=== PATIENT | male | born 1975 | race American Indian/Alaskan Native ===

== ENCOUNTER 2018-03-20 08:09 | Inpatient (IN) | payer OTHER ==
--- NOTE | 2018-03-20 08:38 | C.PDOC ---
History Of Present Illness Patient is a 42 y/o male who presents to the ED with a complaint of persistent midsternal chest pain for the last 1 week. Reports chest pain is localized, constant, and is not associated with activity, movement, position, or eating. Denies any SOB, fever, nausea/vomiting, or URI symptoms. Patient also complains of new onset of right leg "off balance" for the last 2 days. Patient admits symptoms worse with initial steps of walking but improves "once I'm walking for awhile". Denies any associated upper extremity symptoms. Patient admits to being compliant with medications and Hx of DM and HIV (undetectable viral load) . No other physical complaints at this time. PERSIST MIDSTERNAL CP X 1 WEEK, NEW ONSET "OFF BALANCE" X 2 DAYS. CP LOCALIZED CONSTANT, NO ASSOC W ACTIVITY, MOVEMENT, POSITION OR EATING. NO ASSOC SOB, NV FEVER URI SX. HO DM, HIV (VL UNDETECT), COMPLIANT W MEDS. CO R LEG "OFF BALANCE". DENIES VERTIGO, NEAR SYNCOPE, MIKE. SX WORSE WHEN INITIALLY BEGINS TO WALK, IMPROVES "ONCE IM WALKING FOR A WHILE". NO ASSOC UE SX EXAM NAD NONTOXIC HEENT NO NYSTAGMUS; B/L EARS NEG NARD NEURO NO MOTOR, SENS DEF. FINGER NOSE, HEEL GUSTAFSON WO DIFF GAIT MILD IMBALANCE TANDEM WALKING ON R LEG REMAINDER NEG Time Seen by Provider: 03/20/18 08:23 Chief Complaint (Nursing): Chest Pain History Per: Patient History/Exam Limitations: no limitations Onset/Duration Of Symptoms: Days (chest pain x1 week, new onset "off balance" x2 days) Current Symptoms Are (Timing): Still Present Recent travel outside of the [place]: No Past Medical History Reviewed: Historical Data, Nursing Documentation, Vital Signs Vital Signs: Last Vital Signs Temp 98.4 F 03/20/18 08:28 Pulse 79 03/20/18 08:38 Resp 16 03/20/18 08:38 BP 134/78 03/20/18 08:38 Pulse Ox 99 03/20/18 12:06 - Medical History PMH: Diabetes, HIV (undetectable viral load) Surgical History: No Surg Hx Family History: States: No Known Family Hx - Social History Hx Tobacco Use: Yes (heavy smoker) Hx Alcohol Use: Yes Hx Substance Use: No - Immunization History Hx Tetanus Toxoid Vaccination: No Hx Influenza Vaccination: No Hx Pneumococcal Vaccination: No Review Of Systems Constitutional: Negative for: Fever Cardiovascular: Positive for: Chest Pain Respiratory: Negative for: Cough, Shortness of Breath, Wheezing Gastrointestinal: Negative for: Nausea, Vomiting Neurological: Positive for: Incoordination (right leg "off balance" ) Physical Exam - Physical Exam Appears: Non-toxic, No Acute Distress Skin: Normal Color, Warm, Dry Head: Atraumatic, Normacephalic Eye(s): bilateral: Normal Inspection, Other (negative nystagmus) Ear(s): Bilateral: Normal Nose: Normal, No Flaring Oral Mucosa: Moist Chest: Symmetrical Cardiovascular: Rhythm Regular, No Murmur Respiratory: Normal Breath Sounds, No Rales, No Rhonchi, No Wheezing Gastrointestinal/Abdominal: Soft, No Tenderness Extremity: No Tenderness Neurological/Psych: Oriented x3, Normal Speech, Normal Cognition, Normal Motor, Normal Sensation, Other (finger-nose and heel-gustafson without difficulty) Gait: Unsteady (mildly imbalanced; tandem walking on right leg) ED Course And Treatment - Laboratory Results Result Diagrams: 03/20/18 08:44 03/20/18 08:44 ECG: Interpreted By Me ECG Rhythm: Sinus Rhythm ECG Interpretation: Normal Rate From EC O2 Sat by Pulse Oximetry: 99 Pulse Ox Interpretation: Normal - Radiology CXR: Interpreted by Me, Viewed By Ma CXR Interpretation: Yes: No Acute Disease - CT Scan/US CT head Other Rad Studies (CT/US): Interpreted By Me, Read By Radiologist CT/US Interpretation: PROCEDURE: CT HEAD WITHOUT CONTRAST. HISTORY: Right leg imbalance. COMPARISON: None available. TECHNIQUE: Axial computed tomography images were obtained through the head/brain without intravenous contrast. Radiation dose: Total exam DLP = 878.40 mGy-cm. This CT exam was performed using one or more of the following dose reduction techniques: Automated exposure control, adjustment of the mA and/or kV according to patient size, and/or use of iterative reconstruction technique. FINDINGS: HEMORRHAGE: No intracranial hemorrhage. BRAIN: There is a focal low-attenuation area in the left frontal periventricular white matter. There is no mass, mass effect or abnormal extra-axial fluid collection. VENTRICLES: The ventricles are normal in size, shape and configuration. CALVARIUM: The skull base and calvarium are normal. PARANASAL SINUSES: Predominantly clear. MASTOID AIR CELLS: Predominantly clear. OTHER FINDINGS: None. IMPRESSION: Focal left periventricular white matter abnormality is nonspecific, the differential considerations include age indeterminate infarction, demyelinating disease, and early chronic microangiopathic changes amongst others. An MRI of the brain without and with intravenous contrast is recommended for further evaluation. Progress Note: Head CT, EKG, CXR, blood work ordered. NIHSS Stroke Scale - Date/Time Evaluation Performed Date Performed: 03/20/18 Time Performed: 08:35 When Was NIHSS Performed: Baseline - How Severe is the Stroke Level of Consciousness: 0=Alert LOC to Questions: 0=Both comments correct LOC to commands: 0=Obeys both correctly Best Gaze: 0=Normal Visual: 0=No visual loss Facial: 0=Normal Motor Arm - Left: 0=No drift Motor Arm - Right: 0=No drift Motor Leg - Left: 0=No drift Motor Leg - Right: 0=No drift Limb Ataxia: 0=Absent Sensory: 0=Normal Best Language: 0=No aphasia Dysarthia: 0=Normal articulation Extinction & Inattention (Neglect): 0=Normal, no object Score: 0 Severity Of Stroke: 0 = No Stroke NIHSS Stroke Scale 2 - Date/Time Evaluation Performed Date Performed: 03/20/18 Time Performed: 12:00 When Was NIHSS Performed: Re-evaluation - How Severe is the Stroke Level of Consciousness: 0=Alert LOC to Questions: 0=Both comments correct LOC to commands: 0=Obeys both correctly Best Gaze: 0=Normal Visual: 0=No visual loss Facial: 0=Normal Motor Arm - Left: 0=No drift Motor Arm - Right: 0=No drift Motor Leg - Left: 0=No drift Motor Leg - Right: 0=No drift Limb Ataxia: 0=Absent Sensory: 0=Normal Best Language: 0=No aphasia Dysarthia: 0=Normal articulation Extinction & Inattention (Neglect): 0=Normal, no object Score: 0 Severity Of Stroke: 0 = No Stroke Progress - Re-Evaluation Re-evaluation Note: 03/20/18 09:51 APPEARS COMFORTABLE NAD VSS. NEURO UNCH. CT REPORT REVIEWED. WILL MRI D/W KUSH 03/20/18 11:58 D/W DR OWENS AWARE OF ER FINDINGS. RECOMMENDS CTA, ADMISSION. PLAVIX 300 MG, ASA 81 03/20/18 11:59 NEURO INTACT [facility] PRIOR. VSS. AWARE OF ER FINDINGS, AGREES W ADMISSION. 03/20/18 12:10 D/W DR RODRIGO BUTLER DOOR [employer]SEM[employer]ER WILL ADMIT - Data Reviewed Data Reviewed: Lab, Diagnostic imaging, EKG, Old records - Critical Care Citical Care: Excluding Proc Time Critical Care Time: 90 minutes - Continuity of Care Discussed patient case with:: On-call PMD-pt unassigned Discussed pt. case with coding consultant/specialty: Neurology rTPA Inclusion/Exclusion - Refusal of Treatment Patient Refused Treatment: No - Inclusion Criteria for Altepase Patient is 18 years or Older: Yes The Clinical Diagnosis of Ischemic Stroke That is Causing a Potentially Disabling Neurological Deficit: No Time of Onset is Well Established to be Less Than 270 Minute Before Treatment Would Begin: No Risk/Benefit Discussed With Patient/Family Member Present: Yes - Exclusion Criteria for Altepase Uncontrolled Hypertension at Time of Treatment (Systolic BP above 185 or Diastolic BP above 110 mmHg): No Known Bleeding Diathesis Including but Not Limited to: Platelets Below 100,000/ mm,PTT Above 40 sec After Heparin Use, Current Use of Oral Anitcoagulant With INR Greater Than 1.7 or PT Greater Than 15 secs: No Evidence of an Intracranial Hemorrhage: No Evidence of Major Acute Infarct With Signs Greater Than 1/3 MCA Territory: No Suspicion of Subarachnoid Hemorrhage on Pretreatment Evaluation Even if CT Head Negative For Hemorrhage: No - Warning to TPA With Conditions Following Conditions Weighed Against Anticipated Benefit: Yes Condition: Stroke Serevity Too Mild, Care Team Unable to Determine Eligibilty Disposition Counseled Patient/Family Regarding: Studies Performed, Diagnosis - Disposition Disposition: HOSPITALIZED Disposition Time: 12:22 Condition: SERIOUS Forms: [facility] (Portuguese) - POA Present On Arrival: Poor Glycemic Control - Clinical Impression Clinical Impression: CVA (cerebral vascular accident), HIV (human immunodeficiency virus infection) , Chest pain - Scribe Statement The provider has reviewed the documentation as recorded by the Scribe Bonnie Menchaca All medical record entries made by the Scribe were at my direction and personally dictated by me. I have reviewed the chart and agree that the record accurately reflects my personal performance of the history, physical exam, medical decision making, and the department course for this patient. I have also personally directed, reviewed, and agree with the discharge instructions and disposition. Decision To Admit - Pt Status Changed To: Hospital Disposition Of: Inpatient - Admit Certification Admit to Inpatient:: After my assessment, the patient will require hospitalization for at least two midnights. This is because of the severity of symptoms shown, intensity of services needed, and/or the medical risk in this patient being treated as an outpatient. - InPatient: Physician Admission Certification: I certify that this patient requires 2 or more midnights of care for the following reason:: SEE NOTE - . Bed Request Type: Telemetry Admitting Physician: Jose Isidro Patient Diagnosis: CVA (cerebral vascular accident), HIV (human immunodeficiency virus infection) , Chest pain
[2018-03-20 08:50] LABS: BASO % 0.3 % (0.0-2.0); EOS # 0.2 K/uL (0.0-0.7); EOS % 3.5 % (0.0-4.0); HEMOGLOBIN 16.8 g/dL (12.0-18.0); LYMPH # 1.7 K/uL (1.0-4.3); LYMPH % 35.8 % (20.0-40.0); MEAN CELL VOLUME 92.8 fL (80.0-94.0); MEAN CORPUSCULAR HEMOGLOBIN 33.1 pg (27.0-31.0); MEAN CORPUSCULAR HGB CONC 35.7 g/dL (33.0-37.0); MEAN PLATELET VOLUME 10.2 fL (7.2-11.7); MONO # 0.5 K/uL (0.0-0.8); MONO % 10.5 % (0.0-10.0); NEUT # 2.4 K/uL (1.8-7.0); NEUT % 49.9 % (50.0-75.0); NRBC % 0.1 % (0.0-2.0); RBC 5.08 Mil/uL (4.40-5.90); RED CELL DISTRIBUTION WIDTH 14.3 % (11.5-14.5); WHITE BLOOD COUNT 4.7 K/uL (4.8-10.8)
[2018-03-20 09:30] LABS: ALBUMIN 4.2 g/dL (3.5-5.0); ALT/SGPT 35 U/L (21-72); AST/SGOT 38 U/L (17-59); BLOOD UREA NITROGEN 18 mg/dL (9-20); CALCIUM 9.7 mg/dl (8.6-10.4); GFR AFRICAN-AMERICAN > 60; GFR NON-AFRICAN AMERICAN > 60
--- NOTE | 2018-03-20 09:44 | CT ---
PROCEDURE: CT HEAD WITHOUT CONTRAST. HISTORY: Right leg imbalance COMPARISON: None available. TECHNIQUE: Axial computed tomography images were obtained through the head/brain without intravenous contrast. Radiation dose: Total exam DLP = 878.40 mGy-cm. This CT exam was performed using one or more of the following dose reduction techniques: Automated exposure control, adjustment of the mA and/or kV according to patient size, and/or use of iterative reconstruction technique. FINDINGS: HEMORRHAGE: No intracranial hemorrhage. BRAIN: There is a focal low-attenuation area in the left frontal periventricular white matter. There is no mass, mass effect or abnormal extra-axial fluid collection. VENTRICLES: The ventricles are normal in size, shape and configuration. CALVARIUM: The skull base and calvarium are normal. PARANASAL SINUSES: Predominantly clear. MASTOID AIR CELLS: Predominantly clear. OTHER FINDINGS: None. IMPRESSION: Focal left periventricular white matter abnormality is nonspecific, the differential considerations include age indeterminate infarction, demyelinating disease, and early chronic microangiopathic changes amongst others. An MRI of the brain without and with intravenous contrast is recommended for further evaluation.
[2018-03-20] MEDS ORDERED: Gadodiamide 287 mg/ml 20 ml IV ONE (11:17)
[2018-03-20] MEDS ORDERED: Iodixanol 320 MG/ML 100 ML BOTTLE IV ONE (13:17)
--- NOTE | 2018-03-20 13:28 | MRI ---
PROCEDURE: MRI BRAIN WITH AND WITHOUT CONTRAST. HISTORY: Right leg imbalance. History of HIV. COMPARISON: Comparison made with prior CT scan brain 03/20/2018 at 0920 hours. TECHNIQUE: Multiplanar, multisequence MR images of the brain were obtained with and without intravenous contrast enhancement. 20 cc Omniscan contrast material injected for this examination. FINDINGS: HEMORRHAGE: No acute parenchymal, subarachnoid nor extra-axial hemorrhage. No evidence of hemosiderin deposition is identified on gradient echo weighted sequence. DWI: There is a small elliptical shaped acute/subacute infarct in the left anterior vermian region abutting the left posterolateral margin of the 4th ventricle BRAIN PARENCHYMA: There is a small nonenhancing elliptical shaped focus of increased T2 signal with somewhat ring-like type appearance seen in the left anterior jo radiata which is of uncertain etiology though consistent with gliosis possibly related to old infection or inflammation. Clinical correlation with history recommended to exclude other possible causes such as chronic infarct. ENHANCEMENT: No enhancing parenchymal nor extra-axial masses or collections. No evidence of unusual meningeal enhancement. . VENTRICLES: No obstructive hydrocephalus. CRANIUM: No acute calvarial abnormalities. ORBITS: Orbits and contents grossly unremarkable. PARANASAL SINUSES/MASTOIDS: Paranasal and mastoid air complexes are well-developed and currently well-aerated. VASCULAR SYSTEM: Visualized major vascular flow voids at skull base patent OTHER FINDINGS: None . IMPRESSION: There is a tiny acute/ subacute infarct left anterior vermis abutting the left posterolateral border of the 4th ventricle. There is a small elliptical shaped nonenhancing prolonged T2 signal within the left anterior superior basal ganglia/ coronal radiata junction nonspecific. Rule out sequela of old infection. Clinical correlation recommended. There are also a few scattered smaller nonspecific nonenhancing focal areas of increased T2 signal scattered about the subcortical white matter bilaterally. In addition, there are also some very mild diffuse/confluent nonenhancing prolonged T2 signal changes within the periventricular white matter extending peripherally into the deep and subcortical regions bilaterally though most conspicuous in the occipito parietal watershed zones. Rule out HIV encephalopathy or possibly PML. Note these findings were discussed with Dr. Alanis at approximately 11:45 a.m. with written down and read back verification.
--- NOTE | 2018-03-20 14:28 | CT ---
PROCEDURE: CT Angiography of the neck with contrast. HISTORY: Left cerebellar infarct seen on MRI COMPARISON: Correlation made with concurrent MRI of the brain an earlier CT scan of the brain. TECHNIQUE: Contiguous axial images of the neck and brain were obtained from the level of the skull-base to the superior mediastinum in the arteriographic phase of enhancement. Coronal and sagittal reformats or also generated. IV contrast dose: 100 cc Visipaque 320 Radiation Dose - DLP: 636.19 mGy-cm This CT exam was performed using one or more of the following dose reduction techniques: Automated exposure control, adjustment of the mA and/or kV according to patient size, and/or use of iterative reconstruction technique. . . FINDINGS: The visualized portions of the aortic arch are widely patent with no significant atherosclerotic disease. Most of the common carotid arteries are widely patent though there are soft and partially calcified atherosclerotic plaque changes seen distal common carotid arteries extending into the bifurcations. These changes do not result in significant stenosis. . The distal internal carotid arteries including the petrous cavernous and carotid supraclinoid segments also patent. There are small partially calcified atherosclerotic plaque changes (greater on the right than left) also seen along the cavernous segments both distal internal carotid arteries. The vertebral arteries are patent throughout as is the basilar artery. There is some very minimal asymmetry of the distal most aspect of the left vertebral artery which is slightly smaller in caliber than the right. Basilar artery is patent throughout. Visualized major branches of the [place] are patent. There is asymmetry of the A1 segments right-sided which is larger in caliber/more dominant than the left. The the distal branches of the anterior, middle and posterior cerebral artery's are patent and relatively symmetric. No evidence of large aneurysm nor vascular malformation. Note made of small bleb changes seen both lung apices IMPRESSION: Impression: Mild partially soft and partially calcified atherosclerotic plaque changes both distal common carotid artery extending into the carotid bifurcations and proximal most margins of both internal carotid arteries however no evidence to suggest significant stenosis. There also partially calcified atherosclerotic plaque changes both cavernous segments of the distal internal carotid arteries more so on the right than left. There is mild asymmetry of the A1 segments right-sided which is larger in caliber/ more dominant than the left side. No evidence of occlusion large aneurysm nor vascular malformation.
[2018-03-20 15:43] LABS: HDL CHOLESTEROL 37 mg/dL (30-70)
[2018-03-20 15:53] LABS: LDL CHOLESTEROL 174 mg/dL (0-129)
--- NOTE | 2018-03-20 18:25 | CP.PCM.CON ---
History of Present Illness - History of Present Illness History of Present Illness: Mr. Weber is a 42-year-old man with a past medical history of HIV, HTN, who presented with gait instability and leaning toward the left that started two days ago. MRI of the brain showed a left side of the vermis of the cerebellum acute ischemic stroke. Review of Systems - Review of Systems All systems: reviewed and no additional remarkable complaints except Past Patient History - Infectious Disease Hx of Infectious Diseases: None - Past Medical History & Family History Past Medical History?: Yes - Past Social History Smoking Status: Heavy Smoker > 10 Cigarettes Daily - ENDOCRINE/METABOLIC Hx Diabetes Mellitus Type 2: Yes - HEMATOLOGICAL/ONCOLOGICAL Hx Human Immunodeficiency Virus (HIV): Yes (undetectable viral load) - MUSCULOSKELETAL/RHEUMATOLOGICAL Hx Falls: No - PSYCHIATRIC Hx Substance Use: No - ANESTHESIA Hx Anesthesia: No Meds Allergies/Adverse Reactions: Allergies Allergy/AdvReac Type Severity Reaction Status Date / Time No Known Allergies Allergy Verified 03/20/18 08:20 Physical Exam - Neurological Exam Neurological exam: Abnormal Gait, Alert, CN II-XII Intact, Oriented x3, Reflexes Normal Additional comments: Nystagmus on left lateral gaze. Difficulty with coordination on the left arm. NIHSS = 1 Results - Vital Signs Recent Vital Signs: Last Vital Signs Temp 98.1 F 03/20/18 15:40 Pulse 67 03/20/18 16:58 Resp 18 03/20/18 15:40 BP 132/78 03/20/18 15:40 Pulse Ox 97 03/20/18 15:40 - Labs Result Diagrams: 03/20/18 08:44 03/20/18 08:44 Labs: Laboratory Results - last 24 hr 03/20/18 03/20/18 03/20/18 08:17 08:44 08:44 WBC 4.7 L RBC 5.08 Hgb 16.8 Hct 47.2 MCV 92.8 MCH 33.1 H MCHC 35.7 RDW 14.3 Plt Count 233 MPV 10.2 Neut % (Auto) 49.9 L Lymph % (Auto) 35.8 [place] % (Auto) 10.5 H Eos % (Auto) 3.5 Baso % (Auto) 0.3 Neut # (Auto) 2.4 Lymph # (Auto) 1.7 [place] # (Auto) 0.5 Eos # (Auto) 0.2 Baso # (Auto) 0.0 Sodium 137 Potassium 4.8 Chloride 100 Carbon Dioxide 24 Anion Gap 18 BUN 18 Creatinine 1.2 Est GFR ( Amer) > 60 Est GFR (Non-Af Amer) > 60 POC Glucose (mg/dL) 234 H Random Glucose 222 H Calcium 9.7 Total Bilirubin 1.0 AST 38 ALT 35 Alkaline Phosphatase 68 Troponin I 0.0130 Total Protein 8.5 H Albumin 4.2 Globulin 4.3 H Albumin/Globulin Ratio 1.0 Triglycerides Cholesterol LDL Cholesterol Direct HDL Cholesterol 03/20/18 03/20/18 03/20/18 14:19 15:27 16:54 WBC RBC Hgb Hct MCV MCH MCHC RDW Plt Count MPV Neut % (Auto) Lymph % (Auto) [place] % (Auto) Eos % (Auto) Baso % (Auto) Neut # (Auto) Lymph # (Auto) [place] # (Auto) Eos # (Auto) Baso # (Auto) Sodium Potassium Chloride Carbon Dioxide Anion Gap BUN Creatinine Est GFR ( Amer) Est GFR (Non-Af Amer) POC Glucose (mg/dL) 231 H 265 H Random Glucose Calcium Total Bilirubin AST ALT Alkaline Phosphatase Troponin I Total Protein Albumin Globulin Albumin/Globulin Ratio Triglycerides 169 H Cholesterol 231 H LDL Cholesterol Direct 174 H HDL Cholesterol 37 Assessment & Plan (1) CVA (cerebral vascular accident) Assessment and Plan: The patient will require admission and work-up/treatment for stroke. I recommend the followin. Telemetry 2. CTA of the head/neck 3. Echocardiogram with bubble study 4. Load with Plavix 300 mg now and give 75 mg daily along with aspirin 81 mg daily for 21 days, then continue aspirin 81 mg monotherapy indefinitely 5. Lipid panel, HbA1c, B12, folate, TSH, vitamin D level, hypercoagulable work- up. 6. Lipitor 40 mg daily to keep LDL < 70 8. Fluids with NS at 100 mL/hr 9. DVT Px 10. PT OT eval and treatment Thank you. Status: Acute
[2018-03-20 20:46] LABS: INR 0.9; PROTHROMBIN TIME 9.8 SECONDS (9.7-12.2)
[2018-03-20] MEDS: (Novolin R) Insulin Human Regular 100 units/ml vial SC SCH (21:18)
[2018-03-20] MEDS: Abacavir/Lamivudine 600 mg-300 mg Tab PO SCH (21:40)
--- NOTE | 2018-03-20 23:53 | CP.PCM.HP ---
History of Present Illness - History of Present Illness History of Present Illness: CC: Dizziness HPI: Patient is a 42 y/o AA male with h/o HTN,Hyperlipidemia, HIV positive with unknown CD4 count , complaint with diet, meds and follow up who presents to the ED with a complaint of dizziness and persistent midsternal chest pain for the last 1 week. Reports chest pain is localized, constant, and is not associated with activity, movement, position, or eating. Denies any SOB, fever, nausea/ vomiting, or URI symptoms. Patient also complains of new onset of right leg " off balance" for the last 2 days. Patient admits symptoms worse with initial steps of walking but improves "once I'm walking for awhile". Denies any associated upper extremity symptoms. Patient admits to being compliant with medications and Hx of DM and HIV (undetectable viral load). No other physical complaints at this time. PERSIST MIDSTERNAL CP X 1 WEEK, NEW ONSET "OFF BALANCE" X 2 DAYS. CP LOCALIZED CONSTANT, NO ASSOC W ACTIVITY, MOVEMENT, POSITION OR EATING. NO ASSOC SOB, NV FEVER URI SX. HO DM, HIV (VL UNDETECT), COMPLIANT W MEDS. CO R LEG "OFF BALANCE". DENIES VERTIGO, NEAR SYNCOPE, MIKE. SX WORSE WHEN INITIALLY BEGINS TO WALK, IMPROVES "ONCE IM WALKING FOR A WHILE". NO ASSOC UE SX Present on Admission - Present on Admission Any Indicators Present on Admission: Yes Review of Systems - Review of Systems Systems not reviewed;Unavailable: Acuity of Condition - Constitutional Constitutional: Malaise, Weakness - EENT Eyes: absent: As Per HPI, Blind Spots, Blurred Vision, Change in Vision, Decreased Night Vision, Diplopia, Discharge, Dry Eye, Exophthalmos, Floaters, Irritation, Itchy Eyes, Loss of Peripheral Vision, Pain, Photophobia, Requires Corrective Lenses, Sees Flashes, Spots in Vision, Tunnel Vision, Other Visual Disturbances, Loss of Vision, Other Ears: Disequilibrium, Dizziness. absent: As Per HPI, Decreased Hearing, Ear Discharge, Ear Pain, Tinnitus, Abnormal Hearing, Other Nose/Mouth/Throat: absent: As Per HPI, Epistaxis, Nasal Congestion, Nasal Discharge, Nasal Obstruction, Nasal Trauma, Nose Pain, Post Nasal Drip, Sinus Pain, Sinus Pressure, Bleeding Gums, Change in Voice, Dental Pain, Dry Mouth, Dysphagia, Halitosis, Hoarsness, Lip Swelling, Mouth Lesions, Mouth Pain, Odynophagia, Sore Throat, Throat Swelling, Tongue Swelling, Facial Pain, Neck Pain, Neck Mass, Other - Cardiovascular Cardiovascular: Chest Pain, Lightheadedness - Respiratory Respiratory: absent: As Per HPI, Cough, Dyspnea, Hemoptysis, Dyspnea on Exertion , Wheezing, Snoring, Stridor, Pain on Inspiration, Chest Congestion, Excessive Mucous Production, Change in Mucous Color, Pain with Coughing, Other - Gastrointestinal Gastrointestinal: absent: As Per HPI, Abdominal Pain, Belching, Bloating, Change in Bowel Habits, Change in Stool Character, Coffee Ground Emesis, Constipation, Cramping, Diarrhea, Dyspepsia, Dysphagia, Early Satiety, Excessive Flatus, Fecal Incontinence, Heartburn, Hematemesis, Hematochezia, Loose Stools, Melena, Nausea, Odynophagia, Temesmus, Vomiting, Other - Genitourinary Genitourinary: absent: As Per HPI, Change in Urinary Stream, Difficulty Urinating, Dysuria, Flank Pain, Hematuria, Pyuria, Nocturia, Urinary Incontinence, Urinary Frequency, Urinary Hesitance, Urinary Urgency, Voiding Freq/Small Amts, Freq UTI, Hx Renal/Bladder Calculi, Hx /Renal Surgery, Bladder Distension, Other Past Patient History - Infectious Disease Hx of Infectious Diseases: None - Past Medical History & Family History Past Medical History?: Yes - Past Social History Smoking Status: Heavy Smoker > 10 Cigarettes Daily - ENDOCRINE/METABOLIC Hx Diabetes Mellitus Type 2: Yes - HEMATOLOGICAL/ONCOLOGICAL Hx Human Immunodeficiency Virus (HIV): Yes (undetectable viral load) - MUSCULOSKELETAL/RHEUMATOLOGICAL Hx Falls: No - PSYCHIATRIC Hx Substance Use: No - ANESTHESIA Hx Anesthesia: No Meds Home Medications: Home Medication List Medication Instructions Recorded Confirmed Type Aspirin [Ecotrin] 81 mg PO DAILY #30 tabec 03/22/18 Rx Clopidogrel [Plavix] 75 mg PO DAILY #30 tab 03/22/18 Rx Rosuvastatin Calcium [Crestor] 20 mg PO HS #30 tab 03/22/18 Rx Sitagliptin Phos/Metformin HCl 1 each PO BID #60 tablet 03/22/18 Rx [Janumet 50-1,000 mg Tablet] Allergies/Adverse Reactions: Allergies Allergy/AdvReac Type Severity Reaction Status Date / Time No Known Allergies Allergy Verified 03/20/18 08:20 Physical Exam - Constitutional Appears: No Acute Distress Additional comments: tatoes on skin - Head Exam Head Exam: ATRAUMATIC, NORMAL INSPECTION, NORMOCEPHALIC - Eye Exam Eye Exam: EOMI, Normal appearance, PERRL Pupil Exam: NORMAL ACCOMODATION, PERRL - Respiratory Exam Respiratory Exam: Clear to Auscultation Bilateral, NORMAL BREATHING PATTERN - Cardiovascular Exam Cardiovascular Exam: REGULAR RHYTHM - GI/Abdominal Exam GI & Abdominal Exam: Normal Bowel Sounds, Soft. absent: Tenderness - Rectal Exam Rectal Exam: Deferred - Additional Findings Additional findings: EXAM NAD NONTOXIC HEENT NO NYSTAGMUS; B/L EARS NEG NARD NEURO NO MOTOR, SENS DEF. FINGER NOSE, HEEL JOHNSON WO DIFF GAIT MILD IMBALANCE TANDEM WALKING ON R LEG REMAINDER NEG Results - Vital Signs Recent Vital Signs: Last Vital Signs Temp 98.1 F 03/20/18 15:40 Pulse 60 03/20/18 20:05 Resp 18 03/20/18 15:40 BP 132/78 03/20/18 15:40 Pulse Ox 97 03/20/18 15:40 - Labs Result Diagrams: 03/20/18 08:44 03/20/18 08:44 Labs: Laboratory Results - last 24 hr 03/20/18 03/20/18 03/20/18 08:17 08:44 08:44 WBC 4.7 L RBC 5.08 Hgb 16.8 Hct 47.2 MCV 92.8 MCH 33.1 H MCHC 35.7 RDW 14.3 Plt Count 233 MPV 10.2 Neut % (Auto) 49.9 L Lymph % (Auto) 35.8 Mobile % (Auto) 10.5 H Eos % (Auto) 3.5 Baso % (Auto) 0.3 Neut # (Auto) 2.4 Lymph # (Auto) 1.7 Mobile # (Auto) 0.5 Eos # (Auto) 0.2 Baso # (Auto) 0.0 PT INR APTT Sodium 137 Potassium 4.8 Chloride 100 Carbon Dioxide 24 Anion Gap 18 BUN 18 Creatinine 1.2 Est GFR ( Amer) > 60 Est GFR (Non-Af Amer) > 60 POC Glucose (mg/dL) 234 H Random Glucose 222 H Hemoglobin A1c Calcium 9.7 Total Bilirubin 1.0 AST 38 ALT 35 Alkaline Phosphatase 68 Troponin I 0.0130 Total Protein 8.5 H Albumin 4.2 Globulin 4.3 H Albumin/Globulin Ratio 1.0 Triglycerides Cholesterol LDL Cholesterol Direct HDL Cholesterol Homocysteine 03/20/18 03/20/18 03/20/18 14:19 15:27 16:54 WBC RBC Hgb Hct MCV MCH MCHC RDW Plt Count MPV Neut % (Auto) Lymph % (Auto) Mobile % (Auto) Eos % (Auto) Baso % (Auto) Neut # (Auto) Lymph # (Auto) Mobile # (Auto) Eos # (Auto) Baso # (Auto) PT INR APTT Sodium Potassium Chloride Carbon Dioxide Anion Gap BUN Creatinine Est GFR ( Amer) Est GFR (Non-Af Amer) POC Glucose (mg/dL) 231 H 265 H Random Glucose Hemoglobin A1c Calcium Total Bilirubin AST ALT Alkaline Phosphatase Troponin I Total Protein Albumin Globulin Albumin/Globulin Ratio Triglycerides 169 H Cholesterol 231 H LDL Cholesterol Direct 174 H HDL Cholesterol 37 Homocysteine 03/20/18 03/20/18 03/20/18 20:29 20:29 20:29 WBC RBC Hgb Hct MCV MCH MCHC RDW Plt Count MPV Neut % (Auto) Lymph % (Auto) Mobile % (Auto) Eos % (Auto) Baso % (Auto) Neut # (Auto) Lymph # (Auto) Mobile # (Auto) Eos # (Auto) Baso # (Auto) PT 9.8 INR 0.9 APTT 35 H Sodium Potassium Chloride Carbon Dioxide Anion Gap BUN Creatinine Est GFR ( Amer) Est GFR (Non-Af Amer) POC Glucose (mg/dL) Random Glucose Hemoglobin A1c 9.4 H Calcium Total Bilirubin AST ALT Alkaline Phosphatase Troponin I Total Protein Albumin Globulin Albumin/Globulin Ratio Triglycerides 228 H D Cholesterol 219 H LDL Cholesterol Direct 161 H HDL Cholesterol 36 Homocysteine 9.6 03/20/18 20:53 WBC RBC Hgb Hct MCV MCH MCHC RDW Plt Count MPV Neut % (Auto) Lymph % (Auto) Mobile % (Auto) Eos % (Auto) Baso % (Auto) Neut # (Auto) Lymph # (Auto) Mobile # (Auto) Eos # (Auto) Baso # (Auto) PT INR APTT Sodium Potassium Chloride Carbon Dioxide Anion Gap BUN Creatinine Est GFR ( Amer) Est GFR (Non-Af Amer) POC Glucose (mg/dL) 257 H Random Glucose Hemoglobin A1c Calcium Total Bilirubin AST ALT Alkaline Phosphatase Troponin I Total Protein Albumin Globulin Albumin/Globulin Ratio Triglycerides Cholesterol LDL Cholesterol Direct HDL Cholesterol Homocysteine Assessment & Plan (1) TIA (transient ischemic attack) Assessment and Plan: meuro check ct angio rule out cva physical therapy rehab Status: Acute (2) HTN (hypertension) Status: Acute (3) CVA (cerebral vascular accident) Status: Acute (4) Chest pain Status: Acute (5) HIV (human immunodeficiency virus infection) Status: Acute
--- NOTE | 2018-03-21 08:04 | PCM.STROKE ---
Interval History Critical Care Time Spent (in minutes): 20 Stroke Date: 03/20/18 - Treatment DVT Prophylaxis: Lovenox (40 mg SC daily) Antiplatelet: Acetylsalicylic acid (ASA) (81 mg PO daily), Plavix (75 mg PO daily) Statin: Rosuvastatin (20 mg PO HS) - Education Written Stroke Education provided regarding: personal risk factors (DM, HTN, dyslipidemia), stroke warning sign/symptoms, how to activate emergency medical services, need to follow up after discharge (the importance of follow up) NIHSS Stroke Scale - Date/Time Evaluation Performed Date Performed: 03/20/18 Time Performed: 12:00 When Was NIHSS Performed: 24 hours post onset S/S - How Severe is the Stroke Level of Consciousness: 0=Alert LOC to Questions: 0=Both comments correct LOC to commands: 0=Obeys both correctly Best Gaze: 0=Normal Visual: 0=No visual loss Facial: 0=Normal Motor Arm - Left: 0=No drift Motor Arm - Right: 0=No drift Motor Leg - Left: 0=No drift Motor Leg - Right: 0=No drift Limb Ataxia: 0=Absent Sensory: 0=Normal Best Language: 0=No aphasia Dysarthia: 0=Normal articulation Extinction & Inattention (Neglect): 0=Normal, no object Score: 0 Exam - Vital Sign Vital Signs: Temp Pulse Resp BP Pulse Ox 97.9 F 72 20 116/70 97 03/20/18 23:55 03/21/18 01:00 03/20/18 23:55 03/20/18 23:55 03/20/18 23:55 Constitutional: No distress Right Pupil: Reactive Right Pupil Size (in mm): 3 Left Pupil: Reactive Left Pupil Size (in mm): 3 Mental Status: Normal: Orientation Cranial Nerve: Normal: Visual Dick, Extraocular movement intact, Facial Sensation, Facial Strength, Hearing, Palate/Tongue Movement, Shoulder Strength Neuro motor strength exam: Left Upper Extremity: 5, Right Upper Extremity: 5, Left Lower Extremity: 5, Right Lower Extremity: 5 Sensation: Intact to pin DTR: Achilles Tendon Left: 3+, Achilles Tendon Right: 3+, Bicep Left: 3+, Bicep Right: 3+, Brachioradialis Left: 3+, Brachioradialis Right: 3+, Patellar Left: 3 +, Patellar Right: 3+, Tricep Left: 3+, Tricep Right: 3+ Flexor Plantar Reflex: Normal Coordination: Finger/nose Vascular Risk: Hypertension, Diabetes Mellitus, Lipids - Data reviewed Laboratory results: 03/20/18 08:44 03/20/18 08:44 Triglycerides 228 mg/dL (0-149) H D 03/20/18 20:29 Cholesterol 219 mg/dL (0-199) H 03/20/18 20:29 LDL Cholesterol Direct 161 mg/dL (0-129) H 03/20/18 20:29 HDL Cholesterol 36 mg/dL (30-70) 03/20/18 20:29 Hemoglobin A1c 9.4 % (4.2-6.5) H 03/20/18 20:29 Assessment and Plan (1) CVA (cerebral vascular accident) Assessment & Plan: Case discussed with Dr. Salas, continue all current medical regimen. Recommend physical, occupational, and speech eval and treat, hydration, glycemic control, permissive hypertension until 2230 ( treat BP if systolic above 220 and diastolic above 110 mmHG). Pending echocardiogram and hypercoagulation status. Status: Acute
[2018-03-21] MEDS: (Novolin R) Insulin Human Regular 100 units/ml vial SC SCH ×4 (09:25→21:45)
[2018-03-21] MEDS: Enoxaparin 40 mg Syringe SC SCH (09:25)
[2018-03-21 13:08] LABS: FOLATE 13.7 ng/mL
[2018-03-21] MEDS ORDERED: ABACAVIR PO SCH (18:00)
[2018-03-21] MEDS ORDERED: DOLUTEGRAVIR PO SCH (18:00)
[2018-03-21] MEDS ORDERED: LAMIVUDI PO SCH (18:00)
--- NOTE | 2018-03-21 20:23 | CARD ---
APPROVED REPORT EXAM: Two-dimensional and M-mode echocardiogram with Doppler and color Doppler. Other Information Quality : GoodRhythm : INDICATION CVA/TIA RISK FACTORS Hypertension 2D DIMENSIONS IVSd1.3 (0.7-1.1cm)LVDd4.8 (3.9-5.9cm) PWd1.3 (0.7-1.1cm)LVDs3.7 (2.5-4.0cm) FS (%) 21.7 %LVEF (%)48.0 (>50%) M-Mode DIMENSIONS Left Atrium (MM)3.65 (2.5-4.0cm)Aortic Root3.85 (2.2-3.7cm) Aortic Cusp Exc.2.42 (1.5-2.0cm) Mitral Valve MV E Ltqttahv48.0cm/sMV A Bsykswqw79.4cm/sE/A ratio1.0 TDI E/Lateral E'0.0E/Medial E'0.0 Tricuspid Valve TR Peak Xbejzblp094zh/sTR Peak Gr.[id number] LEFT VENTRICLE The left ventricle is normal size. There is mild concentric left ventricular hypertrophy. The systolic function is mildly impaired. There is global hypokinesis of the left ventricle. Transmitral Doppler flow pattern is Grade I-abnormal relaxation pattern. RIGHT VENTRICLE The right ventricle is normal size. There is normal right ventricular wall thickness. The right ventricular systolic function is normal. ATRIA The left atrium size is normal. The right atrium size is normal. AORTIC VALVE The aortic valve is mildly thickened. No aortic regurgitation is present. There is no aortic valvular stenosis. MITRAL VALVE The mitral valve is mildly thickened. There is no evidence of mitral valve prolapse. There is no mitral valve stenosis. TRICUSPID VALVE The tricuspid valve is normal in structure. There is no tricuspid valve regurgitation noted. PULMONIC VALVE There is trace pulmonic valvular regurgitation. GREAT VESSELS The aortic root is normal in size. <Conclusion> The left ventricle is normal size. There is mild concentric left ventricular hypertrophy. The systolic function is mildly impaired. There is global hypokinesis of the left ventricle. Transmitral Doppler flow pattern is Grade I-abnormal relaxation pattern.
[2018-03-21] MEDS: Abacavir/Lamivudine 600 mg-300 mg Tab PO SCH (21:49)
--- NOTE | 2018-03-21 23:12 | CP.PCM.PN ---
Subjective - Date & Time of Evaluation Date of Evaluation: 03/21/18 Time of Evaluation: 16:00 - Subjective Subjective: Pt seen and examined at bedside, pt is for echocardiogram, he has stroke Objective - Vital Signs/Intake and Output Vital Signs (last 24 hours): Temp Pulse Resp BP Pulse Ox 98 F 65 20 104/63 98 03/21/18 15:00 03/21/18 20:00 03/21/18 15:00 03/21/18 15:00 03/21/18 15:00 Intake and Output: 03/21/18 03/22/18 18:59 06:59 Intake Total 600 Balance 600 - Medications Medications: Current Medications Abacavir/Lamivudine (Epzicom) 2 tab PO HS [facility] PRN Reason: Protocol Last Admin: 03/21/18 21:49 Dose: 2 tab Aspirin (Ecotrin) 81 mg PO DAILY [facility] Last Admin: 03/21/18 09:25 Dose: 81 mg Clopidogrel Bisulfate (Plavix) 75 mg PO DAILY [facility] Last Admin: 03/21/18 09:25 Dose: 75 mg Dolutegravir Sodium (Tivicay) 50 mg PO [facility] PRN Reason: Protocol Last Admin: 03/21/18 21:49 Dose: 50 mg Enoxaparin Sodium (Lovenox) 40 mg SC DAILY [facility] Last Admin: 03/21/18 09:25 Dose: 40 mg Insulin Human Regular (Novolin R) 0 unit SC [facility] PRN Reason: Protocol Last Admin: 03/21/18 21:45 Dose: Not Given Rosuvastatin Calcium (Crestor) 20 mg PO HS [facility] Last Admin: 03/21/18 21:49 Dose: 20 mg - Labs Labs: 03/20/18 08:44 03/20/18 08:44 PT 9.8 SECONDS (9.7-12.2) 03/20/18 20:29 INR 0.9 03/20/18 20:29 APTT 35 SECONDS (21-34) H 03/20/18 20:29 - Constitutional Appears: No Acute Distress - Head Exam Head Exam: ATRAUMATIC, NORMAL INSPECTION, NORMOCEPHALIC - Eye Exam Eye Exam: EOMI, Normal appearance, PERRL Pupil Exam: NORMAL ACCOMODATION, PERRL - Respiratory Exam Respiratory Exam: Clear to Ausculation Bilateral, NORMAL BREATHING PATTERN - Cardiovascular Exam Cardiovascular Exam: REGULAR RHYTHM, +S1, +S2. absent: Murmur - GI/Abdominal Exam GI & Abdominal Exam: Soft, Normal Bowel Sounds. absent: Tenderness - Rectal Exam Rectal Exam: Deferred Assessment and Plan (1) TIA (transient ischemic attack) Status: Acute (2) HTN (hypertension) Status: Acute (3) CVA (cerebral vascular accident) Status: Acute (4) Chest pain Status: Acute (5) HIV (human immunodeficiency virus infection) Status: Acute
--- NOTE | 2018-03-21 23:56 | CARD ---
APPROVED REPORT EKG Measurement Heart [id number] <Conclusion> Normal sinus rhythm Normal ECG
--- NOTE | 2018-03-22 08:13 | PCM.STROKE ---
Interval History Critical Care Time Spent (in minutes): 20 Stroke Date: 04/17/18 - Treatment DVT Prophylaxis: Lovenox (40 mg SC daily) Antiplatelet: Acetylsalicylic acid (ASA) (81 mg PO daily), Plavix (75 mg PO daily) Statin: Rosuvastatin (20 mg PO daily) - Education Written Stroke Education provided regarding: personal risk factors, stroke warning sign/symptoms (weakness, slurred speech), how to activate emergency medical services, need to follow up after discharge (to prevent future stroke) NIHSS Stroke Scale - Date/Time Evaluation Performed Date Performed: 03/21/18 Time Performed: 11:25 - How Severe is the Stroke Level of Consciousness: 0=Alert LOC to Questions: 0=Both comments correct LOC to commands: 0=Obeys both correctly Best Gaze: 0=Normal Visual: 0=No visual loss Facial: 0=Normal Motor Arm - Left: 0=No drift Motor Arm - Right: 0=No drift Motor Leg - Left: 0=No drift Motor Leg - Right: 0=No drift Limb Ataxia: 0=Absent Sensory: 0=Normal Best Language: 0=No aphasia Dysarthia: 0=Normal articulation Extinction & Inattention (Neglect): 0=Normal, no object Score: 0 Exam - Vital Sign Vital Signs: Temp Pulse Resp BP Pulse Ox 97.7 F 62 18 131/69 97 03/22/18 07:25 03/22/18 07:25 03/22/18 07:25 03/22/18 07:25 03/22/18 07:25 Constitutional: Normal appearing Right Pupil: Reactive Right Pupil Size (in mm): 3 Left Pupil: Reactive Left Pupil Size (in mm): 3 Cardiovascular: Regular rate & rhythm Mental Status: Normal: Orientation Cranial Nerve: Normal: Visual Dick, Extraocular movement intact, Facial Sensation, Facial Strength, Hearing, Palate/Tongue Movement, Shoulder Strength Motor: Tone Neuro motor strength exam: Left Upper Extremity: 5, Right Upper Extremity: 5, Left Lower Extremity: 5, Right Lower Extremity: 5 Flexor Plantar Reflex: Normal Coordination: Finger/nose, Heel/[place] Vascular Risk: Hypertension, Diabetes Mellitus, Lipids, Dietary - Data reviewed Laboratory results: 03/20/18 08:44 03/20/18 08:44 Triglycerides 228 mg/dL (0-149) H D 03/20/18 20:29 Cholesterol 219 mg/dL (0-199) H 03/20/18 20:29 LDL Cholesterol Direct 161 mg/dL (0-129) H 03/20/18 20:29 HDL Cholesterol 36 mg/dL (30-70) 03/20/18 20:29 Hemoglobin A1c 9.4 % (4.2-6.5) H 03/20/18 20:29 Echo: showed LV size normal, mild concentric LV hypertrophy, systolic function is mildly impaired, global hypokinesis of the left ventricle, there is Grade-1 abnormal relaxation pattern. Assessment and Plan (1) CVA (cerebral vascular accident) Assessment & Plan: Case discussed with Dr. Salas, continue all current medical regimen. Recommend physical, occupational, and speech regimens. Recommend hydration, glycemic and blood pressure control. Recommend to follow up with Dr. Salas at [address] [place] [address] [place] [id number], tel. [phone]. With neurological stable , may discharge to home with clearance from primary. Status: Acute
[2018-03-22] MEDS: (Novolin R) Insulin Human Regular 100 units/ml vial SC SCH ×2 (08:50→12:30)
[2018-03-22] MEDS: Enoxaparin 40 mg Syringe SC SCH (10:29)
[2018-03-22 12:08] VITALS: PULSE 68
--- NOTE | 2018-03-22 16:03 | CP.PCM.PN ---
Subjective - Date & Time of Evaluation Date of Evaluation: 03/22/18 Time of Evaluation: 16:01 - Subjective Subjective: PT CLEARED FOR D/C HOME TODAY BY NEURO AND DR. WALLACE. NEW RX GIVEN TO THE PT ; UNABLE TO SENT TO HIS PHARMACY, HE WILL FILL THEM THROUGH HIS JOB. DISCUSSED AT LENGTH THE D/C PLAN, F/U APPTS, AND MEDICATIONS. PT AND SIGNIFICANT OTHER VERBALIZE UNDERSTANDING. NO FURTHER ORDERS. -FOLLOW UP WITH DR. WALLACE OR YOUR PRIMARY DOCTOR IN THE OFFICE WITHIN 1 WEEK AFTER DISCHARGE---CALL THE OFFICE TO MAKE APPOINTMENT TIME. -FOLLOW UP WITH DR. OWENS (NEUROLOGIST) IN THE OFFICE WITHIN 1 WEEK AFTER DISCHARGE---CALL THE OFFICE TO MAKE APPOINTMENT TIME. -MAKE AN APPOINTMENT TO SEE THE WELDER REPAIR IN [facility]. -CONTINUE HOME MEDICATIONS USUAL. -NEW MEDICATIONS INCLUDE THE FOLLOWIN) ASPIRIN 81 MG (TAKE 1 TABLET) BY MOUTH ONCE A DAY. 2) PLAVIX 75 MG (TAKE 1 TABLET) BY MOUTH ONCE A DAY. 3) CRESTOR 20 MG MG (TAKE 1 TABLET) BY MOUTH ONCE A DAY AT BEDTIME. 4) JANUMET MG (TAKE 1 TABLET) BY MOUTH TWICE A DAY -YOUR INSURANCE MAY SUBSTITUTE THE JANUMET AND CRESTOR FOR SOMETHING THAT IS COVERED BY YOUR INSURANCE MEDICATION PLAN. -FOR FURTHER QUESTIONS OR CONCERNS, FEEL FREE TO CONTACT DR. WALLACE OR DR. OWENS. Objective - Vital Signs/Intake and Output Vital Signs (last 24 hours): Temp Pulse Resp BP Pulse Ox 97.7 F 68 18 131/69 97 03/22/18 07:25 03/22/18 11:20 03/22/18 07:25 03/22/18 07:25 03/22/18 07:25 Intake and Output: 03/22/18 03/22/18 06:59 18:59 Intake Total 600 400 Balance 600 400 - Medications Medications: Current Medications Abacavir/Lamivudine (Epzicom) 2 tab PO HS [facility] PRN Reason: Protocol Last Admin: 03/21/18 21:49 Dose: 2 tab Aspirin (Ecotrin) 81 mg PO DAILY [facility] Last Admin: 03/22/18 10:28 Dose: 81 mg Clopidogrel Bisulfate (Plavix) 75 mg PO DAILY [facility] Last Admin: 03/22/18 10:28 Dose: 75 mg Dolutegravir Sodium (Tivicay) 50 mg PO HS [facility] PRN Reason: Protocol Last Admin: 03/21/18 21:49 Dose: 50 mg Enoxaparin Sodium (Lovenox) 40 mg SC DAILY [facility] Last Admin: 03/22/18 10:29 Dose: 40 mg Insulin Human Regular (Novolin R) 0 unit SC [facility] PRN Reason: Protocol Last Admin: 03/22/18 12:30 Dose: 4 unit Rosuvastatin Calcium (Crestor) 20 mg PO HS [facility] Last Admin: 03/21/18 21:49 Dose: 20 mg - Labs Labs: 03/20/18 08:44 03/20/18 08:44 PT 9.8 SECONDS (9.7-12.2) 03/20/18 20:29 INR 0.9 03/20/18 20:29 APTT 35 SECONDS (21-34) H 03/20/18 20:29
[2018-03-22 16:18] VITALS: BP 127/86; RESP 20; TEMP 97.9; O2SAT 98
--- NOTE | 2018-03-23 05:08 | CP.PCM.DIS ---
Provider - Provider Date of Admission: 03/20/18 12:24 Attending physician: Jose Isidro MD Time Spent in preparation of Discharge (in minutes): 45 Diagnosis - Discharge Diagnosis (1) TIA (transient ischemic attack) Status: Acute (2) HTN (hypertension) Status: Acute (3) CVA (cerebral vascular accident) Status: Acute (4) Chest pain Status: Acute (5) HIV (human immunodeficiency virus infection) Status: Acute Hospital Course - Lab Results Lab Results: Most Recent Lab Values WBC 4.7 K/uL (4.8-10.8) L 03/20/18 08:44 RBC 5.08 Mil/uL (4.40-5.90) 03/20/18 08:44 Hgb 16.8 g/dL (12.0-18.0) 03/20/18 08:44 Hct 47.2 % (35.0-51.0) 03/20/18 08:44 MCV 92.8 fL (80.0-94.0) 03/20/18 08:44 MCH 33.1 pg (27.0-31.0) H 03/20/18 08:44 MCHC 35.7 g/dL (33.0-37.0) 03/20/18 08:44 RDW 14.3 % (11.5-14.5) 03/20/18 08:44 Plt Count 233 K/uL (130-400) 03/20/18 08:44 MPV 10.2 fL (7.2-11.7) 03/20/18 08:44 Neut % (Auto) 49.9 % (50.0-75.0) L 03/20/18 08:44 Lymph % (Auto) 35.8 % (20.0-40.0) 03/20/18 08:44 Love % (Auto) 10.5 % (0.0-10.0) H 03/20/18 08:44 Eos % (Auto) 3.5 % (0.0-4.0) 03/20/18 08:44 Baso % (Auto) 0.3 % (0.0-2.0) 03/20/18 08:44 Neut # (Auto) 2.4 K/uL (1.8-7.0) 03/20/18 08:44 Lymph # (Auto) 1.7 K/uL (1.0-4.3) 03/20/18 08:44 Love # (Auto) 0.5 K/uL (0.0-0.8) 03/20/18 08:44 Eos # (Auto) 0.2 K/uL (0.0-0.7) 03/20/18 08:44 Baso # (Auto) 0.0 K/uL (0.0-0.2) 03/20/18 08:44 ESR 10 mm/hr (0-15) 03/21/18 11:26 PT 9.8 SECONDS (9.7-12.2) 03/20/18 20:29 INR 0.9 03/20/18 20:29 APTT 35 SECONDS (21-34) H 03/20/18 20:29 Sodium 137 mmol/L (132-148) 03/20/18 08:44 Potassium 4.8 mmol/L (3.6-5.2) 03/20/18 08:44 Chloride 100 mmol/L (98-107) 03/20/18 08:44 Carbon Dioxide 24 mmol/L (22-30) 03/20/18 08:44 Anion Gap 18 (10-20) 03/20/18 08:44 BUN 18 mg/dL (9-20) 03/20/18 08:44 Creatinine 1.2 mg/dL (0.8-1.5) 03/20/18 08:44 Est GFR ( Amer) > 60 03/20/18 08:44 Est GFR (Non-Af Amer) > 60 03/20/18 08:44 POC Glucose (mg/dL) 256 mg/dL (65-110) H 03/22/18 11:39 Random Glucose 222 mg/dL (75-110) H 03/20/18 08:44 Hemoglobin A1c 9.4 % (4.2-6.5) H 03/20/18 20:29 Calcium 9.7 mg/dl (8.6-10.4) 03/20/18 08:44 Total Bilirubin 1.0 mg/dL (0.2-1.3) 03/20/18 08:44 AST 38 U/L (17-59) 03/20/18 08:44 ALT 35 U/L (21-72) 03/20/18 08:44 Alkaline Phosphatase 68 U/L (38-126) 03/20/18 08:44 Troponin I 0.0130 ng/mL (0.00-0.120) 03/20/18 08:44 C-Reactive Protein < 5.00 mg/L (0.0-9.9) 03/21/18 11:26 Total Protein 8.5 g/dL (6.3-8.3) H 03/20/18 08:44 Albumin 4.2 g/dL (3.5-5.0) 03/20/18 08:44 Globulin 4.3 gm/dL (2.2-3.9) H 03/20/18 08:44 Albumin/Globulin Ratio 1.0 (1.0-2.1) 03/20/18 08:44 Triglycerides 228 mg/dL (0-149) H D 03/20/18 20:29 Cholesterol 219 mg/dL (0-199) H 03/20/18 20:29 LDL Cholesterol Direct 161 mg/dL (0-129) H 03/20/18 20:29 HDL Cholesterol 36 mg/dL (30-70) 03/20/18 20:29 Vitamin B12 464 pg/mL (239-931) 03/21/18 11:26 25-OH Vitamin D Total < 12.8 NG/ML (30.0-100.0) L 03/21/18 11:26 Folate 13.7 ng/mL 03/21/18 11:26 Homocysteine 9.6 umol/L (6.6-14.8) 03/20/18 20:29 TSH 3rd Generation 2.12 mIU/L (0.46-4.68) 03/21/18 11:26 - Hospital Course Hospital Course: PT SEEN AND EXAMINED, STABLE, CLEARED FOR D/C HOME TODAY . NEW RX GIVEN TO THE PT; UNABLE TO SENT TO HIS PHARMACY, HE WILL FILL THEM THROUGH HIS JOB. DISCUSSED AT LENGTH THE D/C PLAN, F/U APPTS, AND MEDICATIONS. PT AND SIGNIFICANT OTHER VERBALIZE UNDERSTANDING. NO FURTHER ORDERS. -FOLLOW UP WITH ME OR YOUR PRIMARY DOCTOR IN THE OFFICE WITHIN 1 WEEK AFTER DISCHARGE---CALL THE OFFICE TO MAKE APPOINTMENT TIME. -FOLLOW UP WITH DR. OWENS (NEUROLOGIST) IN THE OFFICE WITHIN 1 WEEK AFTER DISCHARGE---CALL THE OFFICE TO MAKE APPOINTMENT TIME. -MAKE AN APPOINTMENT TO SEE THE [employer] [facility]ST[facility] IN [facility]. -CONTINUE HOME MEDICATIONS USUAL. -NEW MEDICATIONS INCLUDE THE FOLLOWIN) ASPIRIN 81 MG (TAKE 1 TABLET) BY MOUTH ONCE A DAY. 2) PLAVIX 75 MG (TAKE 1 TABLET) BY MOUTH ONCE A DAY. 3) CRESTOR 20 MG MG (TAKE 1 TABLET) BY MOUTH ONCE A DAY AT BEDTIME. 4) JANUMET MG (TAKE 1 TABLET) BY MOUTH TWICE A DAY -YOUR INSURANCE MAY SUBSTITUTE THE JANUMET AND CRESTOR FOR SOMETHING THAT IS COVERED BY YOUR INSURANCE MEDICATION PLAN. -FOR FURTHER QUESTIONS OR CONCERNS, FEEL FREE TO CONTACT DR. ISIDRO OR DR. OWENS. Discharge Exam - Head Exam Head Exam: ATRAUMATIC, NORMAL INSPECTION, NORMOCEPHALIC Discharge Plan - Discharge Medications Prescriptions: Rosuvastatin Calcium [Crestor] 20 mg PO HS #30 tab Aspirin [Ecotrin] 81 mg PO DAILY #30 tabec Sitagliptin Phos/Metformin HCl [Janumet 50-1,000 mg Tablet] 1 each PO BID #60 tablet Clopidogrel [Plavix] 75 mg PO DAILY #30 tab - Follow Up Plan Condition: SERIOUS Disposition: HOME/ ROUTINE Instructions: Smoking: Not Just Harmful to Your Lungs and Heart, Sitagliptin and Metformin, Stroke (DC), Chest Pain (DC), Quitting Smoking, Aspirin, Clopidogrel, Rosuvastatin, Hypertension (DC) Additional Instructions: -FOLLOW UP WITH DR. ISIDRO OR YOUR PRIMARY DOCTOR IN THE OFFICE WITHIN 1 WEEK AFTER DISCHARGE---CALL THE OFFICE TO MAKE APPOINTMENT TIME. -FOLLOW UP WITH DR. OWENS (NEUROLOGIST) IN THE OFFICE WITHIN 1 WEEK AFTER DISCHARGE---CALL THE OFFICE TO MAKE APPOINTMENT TIME. -CONTINUE HOME MEDICATIONS USUAL. -NEW MEDICATIONS INCLUDE THE FOLLOWIN) ASPIRIN 81 MG (TAKE 1 TABLET) BY MOUTH ONCE A DAY. 2) PLAVIX 75 MG (TAKE 1 TABLET) BY MOUTH ONCE A DAY. 3) CRESTOR 20 MG MG (TAKE 1 TABLET) BY MOUTH ONCE A DAY AT BEDTIME. 4) JANUMET MG (TAKE 1 TABLET) BY MOUTH TWICE A DAY -YOUR INSURANCE MAY SUBSTITUTE THE JANUMET AND CRESTOR FOR SOMETHING THAT IS COVERED BY YOUR INSURANCE MEDICATION PLAN. -FOR FURTHER QUESTIONS OR CONCERNS, FEEL FREE TO CONTACT DR. ISIDRO OR DR. OWENS. Referrals: Taras Owens MD [Staff Provider] - Jose Isidro MD [Staff Provider] -
== END 2018-03-22 17:00 | disposition home or self-care (01) | DRG 69 ==
LOC: C.ER 08:09 → C.9E 12:24 → C.6T 12:46
PROVIDERS: ADMIT Internal Medicine; ATTEND Internal Medicine
DX: G45.9 Transient cerebral ischemic attack, unspecified (principal); Z21 Asymptomatic human immunodeficiency virus [HIV] infection status; I10 Essential (primary) hypertension; E78.5 Hyperlipidemia, unspecified; E11.9 Type 2 diabetes mellitus without complications; F17.210 Nicotine dependence, cigarettes, uncomplicated; Z79.4 Long term (current) use of insulin

== ENCOUNTER 2019-01-06 10:53 | Emergency (ER) | payer OTHER ==
[2019-01-06 11:07] VITALS: BMI 28.2
[2019-01-06 11:09] VITALS: PULSE 99; RESP 18
--- NOTE | 2019-01-06 12:10 | C.PDOC ---
History Of Present Illness The patient reports 2-3 day history of sore throat which is associated with fever and chills. Denies vomiting, diarrhea, or travel. Time Seen by Provider: 01/06/19 11:13 Chief Complaint (Nursing): ENT Problem History Per: Patient History/Exam Limitations: no limitations Onset/Duration Of Symptoms: Persistent Current Symptoms Are (Timing): Still Present Location Of Pain: Throat Pain Scale Rating Of: 6 Recent travel outside of the [place]: No Past Medical History Vital Signs: Last Vital Signs Temp 98.9 F 01/06/19 11:06 Pulse 99 H 01/06/19 11:06 Resp 18 01/06/19 11:06 BP 157/85 H 01/06/19 11:06 Pulse Ox 989 H 01/06/19 11:06 - Medical History PMH: Diabetes, HIV (undetectable viral load), HTN Surgical History: No Surg Hx Family History: States: No Known Family Hx - Social History Hx Tobacco Use: Yes (heavy smoker) Hx Alcohol Use: No Hx Substance Use: No - Immunization History Hx Tetanus Toxoid Vaccination: No Hx Influenza Vaccination: Yes Hx Pneumococcal Vaccination: Yes (2017) Review Of Systems Except As Marked, All Systems Reviewed And Found Negative. Constitutional: Negative for: Fever, Chills ENT: Negative for: Ear Pain Respiratory: Negative for: Cough, Shortness of Breath Gastrointestinal: Negative for: Nausea, Vomiting, Abdominal Pain Genitourinary: Negative for: Dysuria Neurological: Negative for: Weakness, Numbness Physical Exam - Physical Exam Appears: Non-toxic, No Acute Distress Skin: Normal Color, Warm, No Rash Head: Atraumatic, Normacephalic Eye(s): bilateral: Normal Inspection Ear(s): Bilateral: Normal Oral Mucosa: Moist Throat: Erythema, Exudate ((+) ) Neck: Normal ROM, Supple Chest: Symmetrical, No Deformity, No Tenderness Cardiovascular: Rhythm Regular, No Friction Rub, No Murmur Respiratory: Normal Breath Sounds, No Rales, No Rhonchi, No Wheezing Gastrointestinal/Abdominal: Soft, No Tenderness Back: Normal Inspection, No CVA Tenderness Extremity: Normal ROM, No Swelling Neurological/Psych: Oriented x3, Normal Speech, Normal Motor Gait: Steady ED Course And Treatment O2 Sat by Pulse Oximetry: 98 (on RA) Pulse Ox Interpretation: Normal Disposition - Disposition Referrals: [facility] [Outside] Disposition: HOME/ ROUTINE Disposition Time: 12:08 Condition: GOOD Additional Instructions: Follow up with the medical doctor within 1-2 days. Return if worsened. Prescriptions: Azithromycin [Zithromax] 250 mg PO DAILY #4 tab Ibuprofen [Motrin] 600 mg PO TID #21 tab Instructions: Sore Throat, Adult (DC) Forms: [employer] (Armenian) - Clinical Impression Clinical Impression: Pharyngitis
[2019-01-06 12:18] VITALS: BP 146/77; TEMP 98.7; O2SAT 95
== END 2019-01-06 12:22 | disposition home or self-care (01) ==
LOC: C.ER 10:53
DX: J02.9 Acute pharyngitis, unspecified (principal); E11.9 Type 2 diabetes mellitus without complications; I10 Essential (primary) hypertension; F17.200 Nicotine dependence, unspecified, uncomplicated; B20 Human immunodeficiency virus [HIV] disease